=== PATIENT | female | born 1970 | race Caucasian/White ===

== ENCOUNTER 2016-08-02 13:28 | Inpatient (IN) | payer OTHER ==
[~2016-08-02 13:28] MED LIST: CEFDINIR300 MG PO; CLARITIN10 MG PO; CLONAZEPAM 0.50.5 MG PO; DULERA 200 MCG8.8 GM INH; IBUPROFEN800 MG PO; MUCINEX 600MG600 MG PO; NIFEREX150 MG PO; PERCOCET 7.5/321 TAB PO; PREDNISONE 20MG20 MG PO; PROVENTIL HFA6.7 GM INH; RISPERDAL 1MG TA1 MG PO; SPIRIVA 18MCG18 MCG INH; TUDORZA PRESS400 MCG INH; VENTOLIN HFA IN18 GM INH; XARELTO10 MG PO; ZITHROMAX500 MG PO
[2016-08-02 14:26] LABS: BASOPHIL 0.1 % (0-2); EOSINOPHIL 0 % (0-5); HCT 41.5 % (37.0-47.0); HGB 13.8 g/dl (12.5-16.0); LYMPHOCYTE 4.8 % (15-48); MCH 30.5 pg (25.0-31.0); MCHC 33.3 g/dL (32.0-36.0); MCV 91.8 fL (78.0-100.0); MONOCYTE 7.6 % (0-12); MPV 11.8 fL (6.0-9.5); NEUTROPHIL 87.5 % (41-80); PLT 286 K/uL (150-400); RBC 4.52 M/uL (4.20-5.40); RDW 14.1 % (11.5-14.0); WBC 19.2 K/uL (4.0-10.5)
[2016-08-02 14:46] LABS: ALBUMIN 4.5 g/dL (3.5-5.0); BILIRUBIN - TOTAL 0.2 mg/dL (0.1-1.0); CREATININE 0.7 mg/dL (0.5-1.0); GLOBULIN (CALCULATION) 3.6 g/dL (2.2-4.2); POTASSIUM 3.8 mmol/L (3.5-5.1); TOTAL PROTEIN 8.1 g/dL (6.4-8.3)
[2016-08-02 14:49] LABS: LACTIC ACID 3.4 mmol/L (0.5-2.2)
[2016-08-02 16:25] LABS: BILIRUBIN NEGATIVE (NEGATIVE); BLOOD NEGATIVE Ery/uL (NEGATIVE); CLARITY CLEAR (CLEAR); COLOR YELLOW (YELLOW); GLUCOSE (U) NORMAL (NORMAL); KETONE (U) NEGATIVE (NEGATIVE); LEUKOCYTES NEGATIVE Leu/uL (NEGATIVE); NITRITE NEGATIVE (NEGATIVE); PROTEIN NEGATIVE (NEGATIVE); UROBILINOGEN 0.2 mg/dL (0.2-1.0)
[2016-08-03 05:11] LABS: BASOPHIL 0 % (0-2); EOSINOPHIL 0 % (0-5); HCT 37.3 % (37.0-47.0); HGB 12.4 g/dl (12.5-16.0); LYMPHOCYTE 7.9 % (15-48); MCH 30.9 pg (25.0-31.0); MCHC 33.2 g/dL (32.0-36.0); MONOCYTE 5.5 % (0-12); MPV 12.3 fL (6.0-9.5); NEUTROPHIL 86.6 % (41-80); PLT 254 K/uL (150-400); RBC 4.01 M/uL (4.20-5.40); RDW 14.2 % (11.5-14.0)
[2016-08-03 05:19] LABS: CREATININE 0.6 mg/dL (0.5-1.0); POTASSIUM 4.1 mmol/L (3.5-5.1)
[2016-08-05] MEDS ORDERED: DALIRESP500 MCG PO (09:57)
[2016-08-05] MEDS ORDERED: LEVAQUIN750 MG PO (10:08)
[2016-08-05] MEDS ORDERED: DIFLUCAN200 MG PO (10:09)
[2016-08-05] MEDS ORDERED: XANAX0.5 MG PO (10:09)
[2016-08-05] MEDS ORDERED: PREDNISONE PO (10:11)
== END 2016-08-05 10:26 | disposition home or self-care (01) | DRG 871 ==
LOC: FER 13:28 → FMS 16:52
PROVIDERS: Nurse Practitioner; ADMIT Internal Medicine
PROC: 3E0234Z Introduction of Serum, Toxoid and Vaccine into Muscle, Percutaneous Approach (ICD-10-PCS; principal; 2016-08-05)
DX: A41.9 Sepsis, unspecified organism (principal); J96.21 Acute and chronic respiratory failure with hypoxia; J69.0 Pneumonitis due to inhalation of food and vomit; E87.2 Acidosis; J18.9 Pneumonia, unspecified organism; J44.1 Chronic obstructive pulmonary disease with (acute) exacerbation; R65.20 Severe sepsis without septic shock; D86.9 Sarcoidosis, unspecified; F41.1 Generalized anxiety disorder; J45.909 Unspecified asthma, uncomplicated; Z96.653 Presence of artificial knee joint, bilateral; F32.9 Major depressive disorder, single episode, unspecified; Z23 Encounter for immunization; Z87.891 Personal history of nicotine dependence; Z82.49 Family history of ischemic heart disease and other diseases of the circulatory system; Z83.3 Family history of diabetes mellitus; Z83.6 Family history of other diseases of the respiratory system
CPT/HCPCS: 36415; 36600; 71010; 71020; 80048; 80053; 81003; 82803; 83605; 85025; 85379; 87040; 87070; 87088; 87205; 87804; 87899; 90686; 94010; 94640; 94667; 94668; G0008; J0456; J2930; J3475

== ENCOUNTER 2016-10-18 14:26 | Emergency (ER) | payer OTHER ==
[~2016-10-18 14:26] MED LIST changes: +DALIRESP500 MCG PO; +DIFLUCAN200 MG PO; +LEVAQUIN750 MG PO; +PREDNISONE PO; +XANAX0.5 MG PO
== END 2016-10-18 16:33 | disposition home or self-care (01) ==
LOC: FER 14:26
DX: M94.0 Chondrocostal junction syndrome [Tietze] (principal); J44.9 Chronic obstructive pulmonary disease, unspecified
CPT/HCPCS: 71101; 94640; J1100; J1885

== ENCOUNTER 2020-06-30 17:05 | Emergency (ER) | payer OTHER ==
[~2020-06-30 17:05] MED LIST changes: +AUGMENTIN 875-1 EACH PO; +AZITHROMYCIN250 MG PO; +BREO ELLIPTA 11 EACH INH; +LEVAQUIN500 MG PO; +MEDROL 4MG DOSEP4 MG PO; +NAPROXEN500 MG PO; +NICOTINE PATCH1 EAC2 TD; +ROBITUSSIN W/COD5 ML PO; +prednisone
[2020-06-30 20:57] LABS: CORONAVIRUS 2019 SARS-COV-2 NEGATIVE (NEGATIVE); INFLUENZA A NAA NEGATIVE (NEGATIVE)
[2020-06-30] MEDS ORDERED: PREDNISONE 20MG20 MG PO (21:01)
[2020-06-30] MEDS ORDERED: CYCLOBENZAPRINE10 MG PO (21:01)
[2020-06-30] MEDS ORDERED: LEVAQUIN750 MG PO (21:01)
[2020-11-03] MEDS ORDERED: PREDNISONE20 MG PO (15:22)
[2020-11-03] MEDS ORDERED: FLUOXETINE HCL20 MG PO (15:23)
[2020-11-03] MEDS ORDERED: SUBOXONE 2 MG-1 EACH PO (15:24)
[2020-11-07] MEDS ORDERED: OXYGEN (09:10)
[2020-11-07] MEDS ORDERED: PROTONIX 40MG T40 MG PO (10:14)
== END 2020-06-30 21:20 | disposition home or self-care (01) ==
LOC: FER 17:05
PROVIDERS: Nurse Practitioner Family
DX: S39.012A Strain of muscle, fascia and tendon of lower back, initial encounter (principal); J18.9 Pneumonia, unspecified organism; J44.9 Chronic obstructive pulmonary disease, unspecified; X50.1XXA Overexertion from prolonged static or awkward postures, initial encounter; Z20.822 Contact with and (suspected) exposure to COVID-19
CPT/HCPCS: 72131; 96372; J1100; J1885; U0002

== ENCOUNTER 2020-08-20 15:48 | Emergency (ER) | payer OTHER ==
[~2020-08-20 15:48] MED LIST changes: +CYCLOBENZAPRINE10 MG PO
[2020-08-20 18:38] LABS: BASOPHIL 0.4 % (0-2); EOSINOPHIL 13.7 % (0-5); HCT 25.6 % (37.0-47.0); HGB 9.6 g/dl (12.5-16.0); INR 1.21 (0.9-1.2); LYMPHOCYTE 28.9 % (15-48); MCH 51.6 pg (25.0-31.0); MCHC 37.5 g/dL (32.0-36.0); MONOCYTE 7.4 % (0-12); MPV 12.6 fL (6.0-9.5); NEUTROPHIL 48.6 % (41-80); NRBC 0; PLT 179 K/uL (150-400); PROTHROMBIN TIME 14.5 SECONDS (11.4-13.6); PTT 30.4 SECONDS (22.2-34.7); RBC 1.86 M/uL (4.20-5.40); RDW 14.9 % (11.5-14.0)
[2020-08-20 18:51] LABS: ALBUMIN 3.5 g/dL (3.4-5.0); BILIRUBIN - TOTAL 0.4 mg/dL (0.2-1.0); CREATININE 0.59 mg/dL (0.51-0.95); GLOBULIN (CALCULATION) 3.5 g/dL; POTASSIUM 3.7 mmol/L (3.5-5.1)
[2020-08-20 19:01] LABS: MCV 137.6 fL (78.0-100.0)
[2020-08-20] MEDS ORDERED: PREDNISONE 20MG20 MG PO (19:36)
[2020-08-20 19:51] LABS: FOLIC ACID (SERUM) 19.8 ng/mL (8.6-58.9)
[2020-11-03] MEDS ORDERED: PREDNISONE20 MG PO (15:22)
[2020-11-03] MEDS ORDERED: FLUOXETINE HCL20 MG PO (15:23)
[2020-11-03] MEDS ORDERED: SUBOXONE 2 MG-1 EACH PO (15:24)
[2020-11-07] MEDS ORDERED: OXYGEN (09:10)
[2020-11-07] MEDS ORDERED: PROTONIX 40MG T40 MG PO (10:14)
== END 2020-08-20 19:44 | disposition home or self-care (01) ==
LOC: FER 15:48
PROVIDERS: Emergency Medicine
DX: I95.1 Orthostatic hypotension (principal); J44.9 Chronic obstructive pulmonary disease, unspecified; F17.210 Nicotine dependence, cigarettes, uncomplicated; Z98.890 Other specified postprocedural states; Z79.899 Other long term (current) drug therapy; R42 Dizziness and giddiness
CPT/HCPCS: 36415; 70450; 71045; 80053; 82607; 82746; 84443; 84484; 85025; 85610; 85730; 93005; 94640; J2930

== ENCOUNTER → 2020-11-07 | Day surgery (SDC) | payer OTHER ==
[~2020-11-07] VITALS: Ht 172.7 cm; Wt 68.2 kg
[~2020-11-07] MED LIST changes: +FLUOXETINE HCL20 MG PO; +OXYGEN; +PREDNISONE20 MG PO; +PROTONIX 40MG T40 MG PO; +SUBOXONE 2 MG-1 EACH PO
== END | disposition home or self-care (01) ==
LOC: FAS 08:34
DX: K21.00 Gastro-esophageal reflux disease with esophagitis, without bleeding (principal); K31.9 Disease of stomach and duodenum, unspecified; D64.9 Anemia, unspecified; K29.70 Gastritis, unspecified, without bleeding; F17.210 Nicotine dependence, cigarettes, uncomplicated; Z80.1 Family history of malignant neoplasm of trachea, bronchus and lung; F41.9 Anxiety disorder, unspecified; F31.9 Bipolar disorder, unspecified; J44.9 Chronic obstructive pulmonary disease, unspecified; E55.9 Vitamin D deficiency, unspecified; Z96.659 Presence of unspecified artificial knee joint; Z98.51 Tubal ligation status; E53.8 Deficiency of other specified B group vitamins; E61.1 Iron deficiency
CPT/HCPCS: J2250; J2704; J7120

== ENCOUNTER 2021-04-28 09:53 | Emergency (ER) | payer OTHER ==
[2021-04-28 11:21] LABS: BASOPHIL 0.1 % (0-2); EOSINOPHIL 0.2 % (0-5); HCT 43.8 % (37.0-47.0); HGB 14.8 g/dl (12.5-16.0); LYMPHOCYTE 7.9 % (15-48); MCH 34.1 pg (25.0-31.0); MCHC 33.8 g/dL (32.0-36.0); MCV 100.9 fL (78.0-100.0); MONOCYTE 4.1 % (0-12); MPV 11.1 fL (6.0-9.5); NEUTROPHIL 87.1 % (41-80); NRBC 0; PLT 233 K/uL (150-400); RBC 4.34 M/uL (4.20-5.40); RDW 14.4 % (11.5-14.0); WBC 10.4 K/uL (4.0-10.5)
[2021-04-28 11:40] LABS: CREATININE 0.59 mg/dL (0.51-0.95); POTASSIUM 3.8 mmol/L (3.5-5.1)
[2021-04-28] MEDS ORDERED: PREDNISONE 20MG20 MG PO (14:08)
[2021-04-28] MEDS ORDERED: DUONEB 2.5-0.5M1 AMP INH (14:08)
== END 2021-04-28 14:26 | disposition home or self-care (01) ==
LOC: FER 09:53
PROVIDERS: Emergency Medicine
DX: J44.1 Chronic obstructive pulmonary disease with (acute) exacerbation (principal); F17.210 Nicotine dependence, cigarettes, uncomplicated
CPT/HCPCS: 36415; 71045; 80048; 83880; 85025; 94640; 94664; J2930

== ENCOUNTER 2021-06-02 20:19 | Emergency (ER) | payer OTHER ==
[~2021-06-02 20:19] MED LIST changes: +DUONEB 2.5-0.5M1 AMP INH
[2021-06-02 21:13] LABS: CORONAVIRUS 2019 SARS-COV-2 NEGATIVE (NEGATIVE); INFLUENZA A NAA NEGATIVE (NEGATIVE)
[2021-06-02 22:14] LABS: BASOPHIL 0.2 % (0-2); EOSINOPHIL 1.1 % (0-5); HCT 45.7 % (37.0-47.0); HGB 14.7 g/dl (12.5-16.0); LYMPHOCYTE 9.8 % (15-48); MCH 32.8 pg (25.0-31.0); MCHC 32.2 g/dL (32.0-36.0); MONOCYTE 8.3 % (0-12); MPV 11.5 fL (6.0-9.5); NRBC 0; PLT 231 K/uL (150-400); RBC 4.48 M/uL (4.20-5.40); RDW 15.3 % (11.5-14.0); WBC 17.5 K/uL (4.0-10.5)
[2021-06-02 22:22] LABS: BUN/CREAT RATIO (CALC) 11.4 RATIO; CREATININE 0.7 mg/dL (0.51-0.95); POTASSIUM 3.8 mmol/L (3.5-5.1)
[2021-06-02 22:53] LABS: LACTIC ACID 2.3 mmol/L (0.4-1.9)
[2021-06-03] MEDS ORDERED: ZPAK PO (01:20)
[2021-06-03] MEDS ORDERED: MEDROL 4MG DOSEP4 MG PO (01:21)
== END 2021-06-03 02:15 | disposition home or self-care (01) ==
LOC: FER 20:19
PROVIDERS: Emergency Medicine; Nurse Practitioner Family
DX: J44.0 Chronic obstructive pulmonary disease with (acute) lower respiratory infection (principal); J18.9 Pneumonia, unspecified organism; Z87.01 Personal history of pneumonia (recurrent); Z20.822 Contact with and (suspected) exposure to COVID-19; Z79.899 Other long term (current) drug therapy
CPT/HCPCS: 36415; 71045; 80048; 83605; 85025; 93005; 94640; 94664; J0692; J1100; U0002

== ENCOUNTER 2021-06-27 13:34 | Emergency (ER) | payer OTHER ==
[~2021-06-27 13:34] MED LIST changes: +ZPAK PO
[2021-06-27 15:44] LABS: BASOPHIL 0.6 % (0-2); EOSINOPHIL 4.9 % (0-5); HGB 15.1 g/dl (12.5-16.0); LYMPHOCYTE 21.7 % (15-48); MCH 33.1 pg (25.0-31.0); MCHC 32.8 g/dL (32.0-36.0); MCV 100.9 fL (78.0-100.0); MONOCYTE 17.6 % (0-12); MPV 11.6 fL (6.0-9.5); NEUTROPHIL 54.6 % (41-80); NRBC 0; PLT 229 K/uL (150-400); RBC 4.56 M/uL (4.20-5.40); RDW 13.8 % (11.5-14.0); WBC 6.6 K/uL (4.0-10.5)
[2021-06-27 16:01] LABS: INR 0.98 (0.9-1.2); PROTHROMBIN TIME 12.4 SECONDS (11.8-13.4); PTT 27.2 SECONDS (24.4-34.7)
[2021-06-27 16:03] LABS: D-DIMER 0.49 ug/mLFEU (0.00-0.41)
[2021-06-27 16:10] LABS: ALBUMIN 3.7 g/dL (3.4-5.0); BILIRUBIN - TOTAL 0.3 mg/dL (0.2-1.0); BUN/CREAT RATIO (CALC) 11.5 RATIO; CREATININE 0.61 mg/dL (0.51-0.95); GLOBULIN (CALCULATION) 4.2 g/dL; POTASSIUM 3.8 mmol/L (3.5-5.1); TOTAL PROTEIN 7.9 g/dL (6.4-8.2)
[2021-06-27 17:22] LABS: BILIRUBIN NEGATIVE (NEGATIVE); BLOOD NEGATIVE Ery/uL (NEGATIVE); CLARITY CLEAR (CLEAR); COLOR YELLOW (YELLOW); GLUCOSE (U) NORMAL (NORMAL); LEUKOCYTES NEGATIVE Leu/uL (NEGATIVE); NITRITE NEGATIVE (NEGATIVE); PROTEIN NEGATIVE (NEGATIVE); UROBILINOGEN 0.2 mg/dL (0.2-1.0); pH 7.5 (5.0-9.0)
[2021-06-27 17:28] LABS: AMPHETAMINES NEGATIVE (NEGATIVE); BARBITURATES NEGATIVE (NEGATIVE); ECSTASY (MDMA) NEGATIVE (NEGATIVE); MARIJUANA (THC) NEGATIVE (NEGATIVE); METHADONE NEGATIVE (NEGATIVE); OPIATES NEGATIVE (NEGATIVE); OXYCODONE NEGATIVE (NEGATIVE)
[2021-06-27] MEDS ORDERED: ONDANSETRON ODT4 MG PO (20:49)
== END 2021-06-27 21:07 | disposition home or self-care (01) ==
LOC: FER 13:34
PROVIDERS: Emergency Medicine
DX: D86.0 Sarcoidosis of lung (principal); R07.89 Other chest pain; R11.0 Nausea; J45.909 Unspecified asthma, uncomplicated; Z87.891 Personal history of nicotine dependence; Z20.822 Contact with and (suspected) exposure to COVID-19
CPT/HCPCS: 36415; 71250; 80053; 80305; 81003; 83690; 83735; 83880; 84484; 85025; 85379; 85610; 85730; 93005; U0002